=== PATIENT | female | born 1980 | race African-American/Black ===

== ENCOUNTER 2016-08-01 00:45 | Emergency (ER) | payer OTHER ==
[~2016-08-01] VITALS: Ht 162.6 cm; Wt 97.0 kg
[~2016-08-01 00:45] MED LIST: KETO10TA PO
[2016-08-01 00:50] VITALS: TEMP 36.8; Ht 162.6 cm; Wt 97.0 kg
[2016-08-01] MEDS ORDERED: ONDANSETRON 4MG OD TAB PO STA (01:30)
[2016-08-01] MEDS ORDERED: BUPR150T5 PO (01:51)
[2016-08-01] MEDS ORDERED: SOAP SUDS ENEMA PR ONE (03:00)
[2016-08-01 04:01] VITALS: BP 113/80; PULSE 86; O2SAT 100
[2016-08-01] MEDS ORDERED: ONDANSETRON 4MG OD TAB ONE (04:02)
--- NOTE | 2016-08-01 07:02 | DIAGNOSTIC IMAGING REPORT ---
LAURI CLINICAL HISTORY: Constipation. COMPARISON STUDY: Abdominal series June 04, 2016. FINDINGS: The bowel gas pattern is normal. Pelvic calcifications represent phleboliths. There is a moderate to large amount stool within the ascending colon and the transverse colon. There is minimal stool within the descending colon, sigmoid colon and rectum. IMPRESSION: 1. No evidence for a bowel obstruction. 2. Moderate to large amount of stool within the ascending colon and transverse colon with minimal stool within the descending colon, sigmoid colon and rectum. Electronically signed by: Catracho Elkins M.D. 08/01/2016 7:00 AM
--- NOTE | 2016-08-03 12:11 | EMERGENCY ROOM VISIT NOTE ---
History First contact with patient: 01:20 Chief Complaint: ABDOMINAL PAIN Stated Complaint: PAIN IN LOWER LT ABD,NAUSEA Nursing Triage Summary: Patient reports ongoing issues with constipation, states that she took a lot of miralax and mag citrate, states that she was only able to produce a small BM today with that. Patient also reports LLQ pain that has been present for weeks, but has worsened over the past few days. Patient states that the pain also spreads down the left leg. Patient also states that she has had a decreased appetite and states that when she does eat, she feels bloated. Patient has been seen in ED and by PCP fo this. History of Present Illness The patient is a 36 year old female who presents to the Emergency Room with complaints of left-sided abdominal pain that has been worsening over the past day. The patient has a history of chronic constipation. She did attempt MiraLAX and magnesium citrate at home with only minimal improvement of symptoms. The patient has not had fever or chills. Her discomfort does improve with a bowel movement. She has not had fever or chills. 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 Review of Systems More than 10 systems were reviewed and otherwise negative with the exception of history of present illness. Past Medical/Surgical History Medical Problems: (1) ASTHMA, UNSPECIFIED (2) Headache (3) Neck pain (4) Neck pain (5) Neck pain Family History Cancer Kidney disease Kidney stones Social History Smoking Status: Never Smoker Alcohol Use: none Drug Use: none Marital Status: single Housing Status: lives with family Occupation Status: employed Current/Historical Medications Scheduled Bupropion Hcl (Bupropion Hcl Xl), 150 MG PO BID Allergies Coded Allergies: Cyclobenzaprine (Verified Allergy, Unknown, trouble breathing, 08/01/16) Physical Exam Vital Signs Date Time Temp Pulse Resp B/P Pulse Ox O2 Delivery O2 Flow Rate FiO2 08/01/16 04:01 86 20 113/80 100 08/01/16 02:35 80 20 111/74 96 Room Air 08/01/16 00:50 36.8 89 16 126/78 100 Room Air Pain Rating (0-10): 2.0 Physical Exam VITALS: Vitals are noted on the nurse's note and reviewed by myself. Vital signs stable. GENERAL: Well-developed, well-nourished, female, who is in no acute distress and resting comfortably. Patient is cooperative with the examination. HEAD: Normocephalic atraumatic. HEART: Regular rate and rhythm without murmurs gallops or rubs. LUNGS: Clear to auscultation bilaterally without wheezes, rales or rhonchi. No retractions or accessory muscle use. ABDOMEN: Positive normal bowel sounds x 4. Soft with mild left-sided tenderness on palpation. No obvious point tenderness. No rebound or guarding. MUSCULOSKELETAL: No muscle atrophy, erythema, or edema noted. Full range of motion without joint tenderness in all extremities. Medical Decision & Procedures ER Provider Diagnostic Interpretation: KUB CLINICAL HISTORY: Constipation. COMPARISON STUDY: Abdominal series June 04, 2016. FINDINGS: The bowel gas pattern is normal. Pelvic calcifications represent phleboliths. There is a moderate to large amount stool within the ascending colon and the transverse colon. There is minimal stool within the descending colon, sigmoid colon and rectum. IMPRESSION: 1. No evidence for a bowel obstruction. 2. Moderate to large amount of stool within the ascending colon and transverse colon with minimal stool within the descending colon, sigmoid colon and rectum. Medications Administered Medications (Trade) Dose Ordered Sig/Simon Route Start Time Stop Time Status Last Admin Dose Admin Miscellaneous (Soap Suds Enema) 1 ea NOW ONCE WI 08/01/16 03:00 08/01/16 03:01 DC 08/01/16 03:00 1 EA Ondansetron HCl (Zofran Odt) 4 mg STK-MED ONCE .ROUTE 08/01/16 04:02 08/01/16 04:03 DC 08/01/16 04:02 4 MG ED Course Physical exam and history were performed. Nursing notes and EMR were reviewed. Patient appears to have a history consistent with constipation. KUB was performed, and does show a moderate to large amount of stool that does seem to correlate with the patient's symptoms. I discussed options of care with the patient. She has tried outpatient MiraLAX and magnesium citrate. We did elect to perform a soapsuds enema here in the department. The patient had significant results following the soapsuds enema. She had essentially full resolution of her abdominal discomfort after a large bowel movement. Repeat abdominal exam reveals no more left-sided tenderness. Overall the patient does appear stable for discharge home. We discussed conservative MiraLAX and Colace use at home, as well as increasing dietary fiber. The patient should follow with gastroenterology if her symptoms persist. She was otherwise invited back to the ER with any new, worsening, or concerning symptoms. The chart was completed utilizing [employer] Speech Voice Recognition Software. Grammatical errors, random word insertions, pronoun errors, and incomplete sentences are an occasional consequence of this system due to software limitations, ambient noise, and hardware issues. Any formal questions or concerns about the content, text, or information contained within the body of this dictation should be directly addressed to the provider for clarification. . Medical Decision Differential diagnosis: Etiologies such as appendicitis, diverticulitis, PUD, biliary pathology, UTI, pancreatitis, obstruction, mesenteric ischemia, aortic pathology, infections, inflammatory bowel disease, renal colic, as well as others were entertained. Impression Primary Impression: Constipation Departure Information Dispostion Home / Self-Care Condition GOOD Referrals Melvin Grimaldo D.O. Forms Call Back Authorization, HOME CARE DOCUMENTATION FORM, [facility], IMPORTANT VISIT INFORMATION Patient Instructions A Signature Page Additional Instructions You were seen and evaluated today on an emergency basis only. This is not a substitute for, or an effort to provide, complete comprehensive medical care. It is not possible to recognize and treat all injuries or illnesses in a single emergency department visit. For this reason it is recommended that you followup with Gastroenterology, Dr. Grimaldo's office, with any ongoing or persistent symptoms. Drink plenty of fluids and remain well hydrated. Consider [id number] MiraLAX or Colace. Increase dietary fiber. You are welcome to return to the emergency department anytime with new, worsening, or concerning symptoms.
[2016-08-05] MEDS ORDERED: LINA1CAP PO (10:55)
[2016-08-05] MEDS ORDERED: BUPR-83 PO (10:55)
== END 2016-08-01 04:05 | disposition home or self-care (01) ==
LOC: C.EDB 00:46
DX: K59.00 Constipation, unspecified (principal); J45.909 Unspecified asthma, uncomplicated

== ENCOUNTER → 2016-08-02 | Outpatient (CLI) | payer OTHER ==
[~2016-08-02] MED LIST changes: +BUPR-83 PO; +BUPR150T5 PO; +HYDR-5688 PO; +IBUP-1050 PO; +LINA1CAP PO; +PSEU240T PO
== END | disposition home or self-care (01) ==
LOC: C.LAB1850 16:13
PROVIDERS: ATTEND Internal Medicine
DX: K59.00 Constipation, unspecified (principal)

== ENCOUNTER → 2016-08-07 | Day surgery (SDC) | payer OTHER ==
[2016-08-05 10:55] VITALS: BMI 37.0
[~2016-08-07] VITALS: Ht 160 cm; Wt 96.8 kg
[~2016-08-07] MED LIST changes: -BUPR150T5 PO; +DEXAMETHASONE SOD INJ 4 MG/ML VIAL ONE; -KETO10TA PO; +LIDOCAINE HCL 2% 2 ML VIAL (20MG/ML) ONE; +MIDAZOLAM HCL 1 MG/ML 2ML VIAL ONE; +ONDANSETRON INJ 2 MG/ML 2 ML VIAL ONE; +PROPOFOL IV EMULSION 10 MG/ML 20 ML VIAL IV ONE; +SODIUM CHLORIDE 0.9% 500ML 500 ML IV ONE
[2016-08-07 12:24] VITALS: Ht 160 cm; Wt 96.8 kg
[2016-08-07 12:31] VITALS: TEMP 36.8
--- NOTE | 2016-08-07 12:32 | Endo History and Physical ---
History & Physical Date of Service: Aug 07, 2016. Chief Complaint: Change in bowel habits Referring Physician: Dr. Vinh Orozco History of Present Illness 36 yo AAF who presents for colonoscopy secondary to change in bowel habits. Past Surgical History Hx Abdominal Surgery: Yes (UMBILICAL HERNIA, LEEP PROCEDURE) Hx Post-Op Nausea and Vomiting: Yes Hx Thoracic Surgery: Yes (UPPER LEFT WRIST CYST REMOVAL) Hx Orthopedic: No Hx Urinary Tract Surgery: No Family History None Social History Smoking Status: Never Smoker Hx Substance Use: No Hx Alcohol Use: Yes (RARELY) Allergies Coded Allergies: Cyclobenzaprine (Verified Allergy, Unknown, trouble breathing, 08/05/16) Current Medications Reported Home Medications Medications Dose Route/Sig Max Daily Dose Days Date Category Linzess (Linaclotide) 145 Mcg Cap 1 Cap PO QAM 08/05/16 Reported Wellbutrin (Bupropion HCl) 100 Mg Tab 100 Mg PO BID 08/05/16 Reported Vital Signs Weight (Kilograms): 96.82 Height (Feet): 5 Height (Inches): 3 Physical Exam General Appearance: WD/WN, no apparent distress Respiratory/Chest: Auscultation: breath sounds normal Cardiovascular: Heart Auscultation: RRR Abdomen: Bowel Sounds: normal Inspection & Palpation: soft, non-distended, no tenderness, guarding & rebound Assessment and Plan Assessment: 36 yo AAF who presents for colonoscopy secondary to change in bowel habits. Plan: Proceed with colonoscopy.
--- NOTE | 2016-08-07 14:04 | Discharge Instructions ---
Endoscopy Patient Instructions Date / Procedure(s) Performed Aug 07, 2016. Colonoscopy Allergy Information Coded Allergies: Cyclobenzaprine (Verified Allergy, Unknown, trouble breathing, 08/05/16) Discharge Date / Findings Aug 07, 2016. Internal hemorrhoids Medication Instructions OK to resume all medications today as prescribed Reported Home Medications Medications Dose Route/Sig Max Daily Dose Days Date Category Linzess (Linaclotide) 145 Mcg Cap 1 Cap PO QAM 08/05/16 Reported Wellbutrin (Bupropion HCl) 100 Mg Tab 100 Mg PO BID 08/05/16 Reported Provider Instructions Activity Restrictions - No exercising or heavy lifting for 24 hours. - Do not drink alcohol the day of the procedure. - Do not drive a car or operate machinery until the day after the procedure. - Do not make any important decisions or sign important papers in 24 hours after the procedure. Following Day: - Return to full activity which may include returning to work/school. Diet Start your diet with liquids and light foods (jello, soup, juice, toast). Then eat your usual diet if not nauseated. Treatment For Common After Affects For mild abdominal pain, bloating, or excessive gas: - Rest - Eat lightly - Lie on right side Follow-Up Information Follow-up with Dr. Orozco as scheduled Anesthesia Information What You Should Know You have had a procedure that required some medicine to reduce anxiety and discomfort. This treatment is called moderate sedation. After receiving the treatment, you may be sleepy, but you will be able to breathe on your own. The effects of the treatment may last for several hours. Follow these instructions along with Activity/Diet recommendations noted above: * Do NOT do anything where dizziness or clumsiness would be dangerous. * Rest quietly at home today, then you can be up and about tomorrow. * Have a responsible person stay with you the rest of today. * You may have had an I.V. today. If so, you may take the dressing off later today. Recommendations Call your doctor if: * Trouble breathing * Continuous vomiting for more than 24 hours * Temperature above 101 degrees * Severe abdominal pain or bloating * Pain not relieved by pain medicine ordered * There is increased drainage or redness from any incision * A large amount of rectal bleeding greater than 2-3 tablespoons. (If you had a polyp/s removed or have hemorrhoids, a small amount of blood - from the rectum is to be expected.) * You have any unanswered questions or concerns. IN THE EVENT OF A SERIOUS EMERGENCY, GO TO THE NEAREST EMERGENCY ROOM Your discharge instructions were prepared by provider Melvin Grimaldo. Patient Instructions Signature Page Tania Davila Patient (or Guardian) Signature/Date: I have read and understand the instructions given to me by my caregivers. Caregiver/RN/Doctor Signature/Date: The above-named patient and/or guardian has received patient instructions on this date. + Original Patient Signature Page (only) stays with chart. Please make copy for patient.
--- NOTE | 2016-08-07 14:04 | GI REPORT ---
Procedure Date: 08/07/2016 12:55 PM Procedure: Colonoscopy Indications: Change in bowel habits Medicines: Monitored Anesthesia Care Complications: No immediate complications. Estimated Blood Loss: Estimated blood loss: none. Procedure: Pre-Anesthesia Assessment: - Prior to the procedure, a History and Physical was performed, and patient medications and allergies were reviewed. The patient's tolerance of previous anesthesia was also reviewed. The risks and benefits of the procedure and the sedation options and risks were discussed with the patient. All questions were answered, and informed consent was obtained. Prior Anticoagulants: The patient has taken no previous anticoagulant or antiplatelet agents. ASA Grade Assessment: II - A patient with mild systemic disease. After reviewing the risks and benefits, the patient was deemed in satisfactory condition to undergo the procedure. After I obtained informed consent, the scope was passed under direct vision. Throughout the procedure, the patient's blood pressure, pulse, and oxygen saturations were monitored continuously. The scope was introduced through the anus and advanced to the terminal ileum. The colonoscopy was performed without difficulty. The patient tolerated the procedure well. The quality of the bowel preparation was good. The terminal ileum, ileocecal valve, appendiceal orifice, and rectum were photographed. Findings: Non-bleeding internal hemorrhoids were found during retroflexion. The hemorrhoids were small. The exam was otherwise without abnormality. Impression: - Non-bleeding internal hemorrhoids. - The examination was otherwise normal. - No specimens collected. Recommendation: - Resume previous diet. - Continue present medications. - Repeat colonoscopy at age 51 for surveillance. - Return to primary care physician as previously scheduled. Melvin Grimaldo DO 08/07/2016 2:03:41 PM This report has been signed electronically. Note Initiated On: 08/07/2016 12:55 PM
[2016-08-07 14:26] VITALS: BP 131/77; PULSE 78; O2SAT 100
--- NOTE | 2016-08-07 15:12 | Anesthesiology Progress Note ---
Anesthesia Post Op Note Date & Time Aug 07, 2016 at 15:11 Vital Signs Pain Intensity: 0 Vital Signs Past 12 Hours Date Time Temp Pulse Resp B/P Pulse Ox O2 Delivery O2 Flow Rate FiO2 08/07/16 14:26 78 20 131/77 100 Room Air 08/07/16 14:10 90 18 94/52 100 Room Air 08/07/16 13:54 75 16 95/53 100 Room Air 08/07/16 12:31 36.8 78 16 119/60 98 Room Air Notes Mental Status: alert / awake / arousable, participated in evaluation Pt Amnestic to Procedure: Yes Nausea / Vomiting: adequately controlled Pain: adequately controlled Airway Patency, RR, SpO2: stable & adequate BP & HR: stable & adequate Hydration State: stable & adequate Anesthetic Complications: no major complications apparent
== END | disposition home or self-care (01) ==
LOC: C.GI 12:07
PROVIDERS: ATTEND Internal Medicine
DX: R19.4 Change in bowel habit (principal); K64.8 Other hemorrhoids; Z98.890 Other specified postprocedural states; Z88.8 Allergy status to other drugs, medicaments and biological substances

== ENCOUNTER 2016-09-07 11:38 | Emergency (ER) | payer OTHER ==
[~2016-09-07] VITALS: Ht 160 cm; Wt 96.8 kg
[~2016-09-07 11:38] MED LIST changes: -DEXAMETHASONE SOD INJ 4 MG/ML VIAL ONE; -HYDR-5688 PO; -IBUP-1050 PO; -LIDOCAINE HCL 2% 2 ML VIAL (20MG/ML) ONE; -MIDAZOLAM HCL 1 MG/ML 2ML VIAL ONE; -ONDANSETRON INJ 2 MG/ML 2 ML VIAL ONE; -PROPOFOL IV EMULSION 10 MG/ML 20 ML VIAL IV ONE; -PSEU240T PO; -SODIUM CHLORIDE 0.9% 500ML 500 ML IV ONE
[2016-09-07 11:42] VITALS: TEMP 36.6; Ht 160 cm; Wt 96.8 kg
[2016-09-07] MEDS ORDERED: KETOROLAC TROMETHAMINE 60 MG/2 ML VIAL IM STA (12:15)
[2016-09-07] MEDS ORDERED: HYDROCODONE/ACETAMOPHEN 5/325MG TAB PO STA (12:15)
--- NOTE | 2016-09-07 13:01 | DIAGNOSTIC IMAGING REPORT ---
RIGHT KNEE 4 VIEWS CLINICAL HISTORY: Chronic right knee pain. FINDINGS: AP, lateral, tunnel, and sunrise views of the right knee are compared to study dated 08/01/2012. The skeletal structures are well mineralized. No fracture is seen. There is degenerative joint space narrowing at the patellofemoral articulation. The medial and lateral compartments appear preserved. There are patellar enthesophytes as well as large lateral marginal osteophytes. No evidence of osteochondral lesion is identified on the tunnel view. There is minimal degenerative beaking of the tibial spine. No joint effusion is seen. The overlying soft tissues are within normal limits. IMPRESSION: 1. No acute bony abnormality seen in the right knee. 2. Mild arthritic change as above, greatest at the patellofemoral articulation. Electronically signed by: Aguilar Vasquez M.D. 09/07/2016 1:00 PM Dictated Date/Time: 09/07/2016 12:59 PM
--- NOTE | 2016-09-07 13:21 | EMERGENCY ROOM VISIT NOTE ---
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 The patient denies any known injury to the knee. The patient states that she was messing around in her house yesterday and got pain just above her knee. The patient states now that she has pain in this area when she tries to bend her knee. The patient denies any numbness and tingling. The patient denies any giving out of the knee. REVIEW OF SYSTEMS: 6 system review was performed and was negative unless stated otherwise in history of present illness. PMH: The patient is healthy; asthma, kidney stones, umbilical hernia repair ganglion cyst removal from left wrist, tonsillectomy, LEEP procedure SOCIAL HISTORY: Patient lives with HER-2 children. The patient denies any tobacco or alcohol use. PHYSICAL EXAM: Vital Signs: Were reviewed Reviewed Nurse's notes. GENERAL: 36- year-old female appears in no acute distress. MENTAL STATUS: Alert, oriented, and cooperative. RIGHT KNEE: No gross bony deformity noted. No erythema or edema noted. The patient has point tenderness in the suprapatellar region. There is no joint effusion. The range of motion is limited secondary to pain. There is no ligamentous instability. The skin is normal and intact. The patient walks with an antalgic gait. EMERGENCY DEPARTMENT COURSE: The patient was evaluated. The patient was given Toradol 60 mg IM and Kossuth 5/325 mg one tablet by mouth for pain. X-ray of the right knee was ordered to include sunrise view. This was interpreted by the radiologist and myself. DIAGNOSTICSRIGHT KNEE 4 VIEWS CLINICAL HISTORY: Chronic right knee pain. FINDINGS: AP, lateral, tunnel, and sunrise views of the right knee are compared to study dated 08/01/2012. The skeletal structures are well mineralized. No fracture is seen. There is degenerative joint space narrowing at the patellofemoral articulation. The medial and lateral compartments appear preserved. There are patellar enthesophytes as well as large lateral marginal osteophytes. No evidence of osteochondral lesion is identified on the tunnel view. There is minimal degenerative beaking of the tibial spine. No joint effusion is seen. The overlying soft tissues are within normal limits. IMPRESSION: 1. No acute bony abnormality seen in the right knee. 2. Mild arthritic change as above, greatest at the patellofemoral articulation. Electronically signed by: Aguilar Vasquez M.D. 09/07/2016 1:00 PM Dictated Date/Time: 09/07/2016 12:59 PM The patient was informed of the findings. The patient was placed in a knee immobilizer and discharged home in stable condition. DIAGNOSIS: Bone spur right knee DISCHARGE INSTRUCTIONS: Knee immobilizer for 3 - 5 days until the pain subsides , ibuprofen, 600 mg every 6 hours if needed for pain. Take Kossuth as needed for more severe pain. Do not drive while taking the work Kossuth. Follow-up with [facility] as soon as possible for definitive care. Problem List Medical Problems: (1) ASTHMA, UNSPECIFIED Status: Chronic (2) Headache Status: Resolved (3) Neck pain Status: Resolved (4) Neck pain Status: Resolved (5) Neck pain Status: Resolved Current/Historical Medications Scheduled Bupropion (Wellbutrin), 100 MG PO BID Linaclotide (Linzess), 1 CAP PO QAM Allergies Coded Allergies: Cyclobenzaprine (Verified Allergy, Unknown, trouble breathing, 09/07/16) Vital Signs Date Time Temp Pulse Resp B/P Pulse Ox O2 Delivery O2 Flow Rate FiO2 09/07/16 11:42 36.6 92 17 122/88 100 Room Air Medications Administered Medications (Trade) Dose Ordered Sig/Simon Route Start Time Stop Time Status Last Admin Dose Admin Acetaminophen/ Hydrocodone Bitart ([place] 5/325 Tab) 1 tab NOW STAT PO 09/07/16 12:15 09/07/16 12:17 DC 09/07/16 12:28 1 TAB Ketorolac Tromethamine (Toradol Inj) 60 mg NOW STAT IM 09/07/16 12:15 09/07/16 12:17 DC 09/07/16 12:28 60 MG Departure Information Referrals Vinh Orozco M.D.([facility]) (PCP) Patient Instructions [facility]
[2016-09-07] MEDS ORDERED: HYDR-5688 PO (13:24)
[2016-09-07 13:37] VITALS: BP 124/81; PULSE 88; O2SAT 100
== END 2016-09-07 13:38 | disposition home or self-care (01) ==
LOC: C.EDB 11:40 → C.EDD 13:38
DX: M76.891 Other specified enthesopathies of right lower limb, excluding foot (principal); G89.29 Other chronic pain; M25.561 Pain in right knee; J45.909 Unspecified asthma, uncomplicated; Z79.899 Other long term (current) drug therapy; Z88.8 Allergy status to other drugs, medicaments and biological substances

== ENCOUNTER 2016-11-17 15:02 | Emergency (ER) | payer OTHER ==
[~2016-11-17] VITALS: Ht 162.6 cm; Wt 101.0 kg
[~2016-11-17 15:02] MED LIST changes: +HYDR-5688 PO
[2016-11-17 15:20] VITALS: TEMP 36.7; Ht 162.6 cm; Wt 101.0 kg
[2016-11-17] MEDS ORDERED: IBUP-1050 PO (15:34)
[2016-11-17] MEDS ORDERED: PSEU240T PO (15:34)
[2016-11-17] MEDS ORDERED: PROCHLORPERAZINE 5 MG/ML 2 ML VIAL IV STA (16:06)
[2016-11-17] MEDS ORDERED: KETOROLAC TROMETHAMINE 30 MG/ML VIAL IV STA (16:06)
[2016-11-17] MEDS ORDERED: SODIUM CHLORIDE 0.9% 1000ML 1,000 ML IV STA (16:06)
[2016-11-17] MEDS ORDERED: DiphenhydrAMINE HCL 50 MG/ML VIAL IV STA (16:06)
--- NOTE | 2016-11-17 16:12 | EMERGENCY ROOM VISIT NOTE ---
History Report prepared by Lebron: Андрей Fontanez Under the Supervision of: Dr. Rene Medrano M.D. First contact with patient: 16:00 Chief Complaint: HEAD PAIN Stated Complaint: HEAD PAIN R SIDE FRONTAL History of Present Illness The patient is a 36 year old female who presents to the Emergency Room with complaints of a persistent right sided headache beginning about 3 days ago. She reports to having a history of migraines, and was here about 1 year ago for a migraine. She notes she has not been sleeping well lately but has been eating well. She took Excedrin and Sudafed yesterday with no relief of her symptoms. She also took a Vicodin which she had leftover from a recent leg surgery. She admits to having some nausea and vomiting, sore throat, and photophobia, and denies having any abdominal pain, arm or leg pain, loss of bowel or bladder control, or recent trauma. She reports that having caffeine helped to temporarily resolve her symptoms. The patient denies any exposure to harmful chemicals at work, and denies a history of diabetes. Source of History: patient Onset: about 3 days ago Position: head (right sided) Quality: ache, other (headache) Timing: other (persistent) Modifying Factors (Worsening): other (light) Modifying Factors (Relieving): other (caffeine) Associated Symptoms: + nausea, + sorethroat, + vomiting, No abdominal pain Note: Patient also reports having photophobia. Patient also denies leg or arm pain, loss of bowel or bladder control, or recent trauma. Review of Systems See HPI for pertinent positives & negatives. A total of 10 systems reviewed and were otherwise negative. Past Medical & Surgical Medical Problems: (1) ASTHMA, UNSPECIFIED (2) Headache (3) Neck pain (4) Neck pain (5) Neck pain Family History Cancer Kidney disease Kidney stones Social History Smoking Status: Never Smoker Alcohol Use: none Drug Use: none Marital Status: single Housing Status: lives with family Occupation Status: employed Current/Historical Medications Scheduled PRN Ibuprofen (Advil), 200-600 MG PO Q4H PRN for Pain Pseudoephedrine Hcl (Sudafed 24 Hour), 1 TAB PO DAILY PRN for CONGESTION Allergies Coded Allergies: Cyclobenzaprine (Verified Allergy, Unknown, trouble breathing, 11/17/16) Physical Exam Vital Signs Date Time Temp Pulse Resp B/P Pulse Ox O2 Delivery O2 Flow Rate FiO2 11/17/16 18:00 77 20 115/70 99 11/17/16 17:30 71 16 126/74 100 Room Air 11/17/16 15:20 36.7 84 20 124/74 98 Room Air Physical Exam GENERAL: Patient is well appearing and in mild distress. HEAD: No acute trauma, normocephalic atraumatic ENT: Mucous membranes moist, no nasal congestion. EAR: Slight amount of fluids behind right TM. EYES: Equal/Reactive Bilaterally, No scleral icterus, Normal ROM NECK: No nuchal rigidity, no meningismus, trachea is midline, full ROM LUNGS: No dyspnea. Clear to auscultation and equal bilaterally. No wheeze, no rhonchi. HEART: Regular rate and rhythm. No murmurs, rubs, gallops appreciated. ABDOMEN: Soft, nontender, bowel sounds positive, no masses appreciated, no peritonitis. BACK: No midline tenderness, no CVA tenderness EXTREMITIES: Normal motion all extremities, no cyanosis, no edema. NEUROLOGIC: Awake, Alert, Oriented, no acute motor or sensory deficits, no focal weakness, cranial nerves grossly intact. SKIN: No rash, no jaundice, no diaphoresis. Medical Decision & Procedures Medications Administered Medications (Trade) Dose Ordered Sig/Simon Route Start Time Stop Time Status Last Admin Dose Admin Sodium Chloride (Nss 1000ml) 1,000 ml @ 999 mls/hr Q1H1M STAT IV 11/17/16 16:06 11/17/16 17:06 DC 11/17/16 16:32 999 MLS/HR Diphenhydramine HCl (Benadryl Inj) 50 mg NOW STAT IV 11/17/16 16:06 11/17/16 16:07 DC 11/17/16 16:33 50 MG Ketorolac Tromethamine (Toradol Inj) 30 mg NOW STAT IV 11/17/16 16:06 11/17/16 16:07 DC 11/17/16 16:34 30 MG Prochlorperazine Edisylate (Compazine Inj) 5 mg NOW STAT IV 11/17/16 16:06 11/17/16 16:07 DC 11/17/16 16:33 5 MG Dexamethasone Sodium Phosphate (Decadron Inj) 10 mg NOW ONCE IV 11/17/16 17:45 11/17/16 17:46 DC 11/17/16 17:50 10 MG ED Course 1601: The patient was evaluated in room B3B. A complete history and physical exam was performed. 1606: Ordered Compazine Inj 5 mg IV, Toradol Inj 30 mg IV, Benadryl Inj 50 mg IV , and NSS 1,000 ml @ 999 mls/hr IV. 1734: I reassessed the patient. She feels much better and is okay with going home. 1745: Ordered Decadron Inj 10 mg IV. 1750: Reevaluated the patient. Discussed results and discharge instructions: She verbalized understanding and agreement. The patient is ready for discharge. Medical Decision Differential: Headache, Migraine, Cluster Headache, Seizure, Meningitis, Sinusitis, CO exposure, ICH/SAH, Infectious, Tumor, Sinus Thrombosis, Arterial Dissection, amongst other pathologies entertained. 36 yr old female arrives with complaint of right sided headache. Similar to previous headaches that she has been seen for. Previously with CT head which was unremarkable. Resolved with above and looks well. No neuro deficits. Discharge to home with instructions regarding return symptoms, etc. Impression Primary Impression: Right-sided headache Scribe Attestation The scribe's documentation has been prepared under my direction and personally reviewed by me in its entirety. I confirm that the note above accurately reflects all work, treatment, procedures, and medical decision making performed by me. Departure Information Dispostion Home / Self-Care Referrals Vinh Orozco M.D.([facility]) (PCP) Patient Instructions ED Headache Migraine, My [facility] Additional Instructions You have received a sedative pain medication. These medications may cause drowsiness and should not be used with other sedative medications. Do not drive , drink alcohol, perform dangerous activities, nor make important decisions after taking these medications.
[2016-11-17] MEDS ORDERED: DEXAMETHASONE SOD INJ 10 MG/ML VIAL IV ONE (17:45)
[2016-11-17 18:00] VITALS: BP 115/70; PULSE 77; O2SAT 99
== END 2016-11-17 17:55 | disposition home or self-care (01) ==
LOC: C.EDB 15:03
DX: R51 Headache (principal); R11.2 Nausea with vomiting, unspecified; J45.909 Unspecified asthma, uncomplicated; Z84.1 Family history of disorders of kidney and ureter

== ENCOUNTER → 2017-05-13 | Outpatient (CLI) | payer OTHER ==
[~2017-05-13] MED LIST changes: -BUPR-83 PO; -HYDR-5688 PO; +IBUP-1050 PO; -LINA1CAP PO; +PSEU240T PO
[2017-05-13 17:39] LABS: URINE APPEARANCE CLEAR (CLEAR); URINE BILIRUBIN NEG (NEG); URINE COLOR YELLOW; URINE NITRITE NEG (NEG); URINE PH 6.5 (4.5-7.5); URINE SPECIFIC GRAVITY 1.029 (1.000-1.030); UROBILINOGEN NEG (NEG)
[2017-05-13 17:44] LABS: MANUAL MICROSCOPIC REQUIRED? NO; REVIEW REQ? NO
== END | disposition home or self-care (01) ==
LOC: C.LAB1850 16:54
PROVIDERS: ATTEND Physician Assistant
DX: R39.9 Unspecified symptoms and signs involving the genitourinary system (principal)

== ENCOUNTER 2017-05-14 10:08 | Emergency (ER) | payer OTHER ==
[~2017-05-14] VITALS: Ht 160 cm; Wt 107.3 kg
[2017-05-14 10:19] VITALS: TEMP 36.8; Ht 160 cm; Wt 107.3 kg
[2017-05-14] MEDS ORDERED: KETOROLAC TROMETHAMINE 30 MG/ML VIAL IV STA (10:40)
[2017-05-14] MEDS ORDERED: SODIUM CHLORIDE 0.9% 1000ML 1,000 ML IV ONE (10:45)
[2017-05-14 11:02] LABS: BASO % 0.5 %; BASO ABS # 0.02 K/uL (0-0.2); COMPLETE YES; EOS % 1.1 %; HEMATOCRIT 39.7 % (37-47); IG% 0.5 %; LYMPH % 36.5 %; LYMPH ABS # 1.59 K/uL (1.2-3.4); MEAN CELL VOLUME 88.2 fL (80-100); MEAN CORPUSCULAR HEMOGLOBIN 29.6 pg (25-34); MEAN CORPUSCULAR HGB CONC 33.5 g/dl (32-36); MEAN PLATELET VOLUME 9.5 fL (7.4-10.4); MONO % 6.9 %; NEUT % 54.5 %; PLATELET COUNT 389 K/uL (130-400); WHITE BLOOD COUNT 4.36 K/uL (4.8-10.8)
[2017-05-14 11:17] LABS: BUN/CREATININE RATIO 11.7 (10-20); CALCIUM 8.9 mg/dl (8.5-10.1); CREATININE 0.93 mg/dl (0.60-1.20); POTASSIUM 3.8 mmol/L (3.5-5.1)
[2017-05-14 11:20] LABS: ALB/GLOB RATIO 0.8 (0.9-2)
[2017-05-14 11:24] LABS: URINE APPEARANCE CLEAR (CLEAR); URINE BILIRUBIN NEG (NEG); URINE COLOR YELLOW; URINE EPITHELIAL CELL AUTO >30 /lpf (0-5); URINE NITRITE NEG (NEG); URINE SPECIFIC GRAVITY 1.026 (1.000-1.030); UROBILINOGEN NEG (NEG); ZZUR CULT IF INDIC CLEAN CATCH NO
[2017-05-14 11:27] LABS: MANUAL MICROSCOPIC REQUIRED? NO; REVIEW REQ? NO
[2017-05-14] MEDS ORDERED: CALCIUM CARBONATE 500 MG CHEWABLE PO ONE (11:45)
--- NOTE | 2017-05-14 11:46 | DIAGNOSTIC IMAGING REPORT ---
ABD/PELVIS WITHOUT FOR STONE HISTORY: 36 years-old Female Right flank pain. Acute right-sided flank pain with history of kidney stones COMPARISON: [facility] 08/01/2016, CT 02/25/2013 TECHNIQUE: Multiple axial CT images of the abdomen and pelvis were obtained without contrast. A dose lowering technique was used consistent with the principals of DAVIN. FINDINGS: The imaged inferior cardiac chambers appear to be within the upper limits of normal. Minimal subsegmental dependent bibasilar atelectasis. No pneumoperitoneum identified. Evaluation of the solid abdominal organs is limited without the use of IV contrast. Within the limitations of the study, the liver, spleen, pancreas and adrenal glands are unremarkable. Gallbladder is mildly contracted. Punctate nonobstructing calculus of the interpolar left kidney is seen on image 124 of series 3. No definite right-sided renal calculi, ureteral calculi or obstructive uropathy. Calcifications of the pelvis suggest phleboliths, notably a 5 mm calcification image 384 of series 3 within the region of the left renal retrovesicular junction is noted, also suggesting phlebolith. Urinary bladder is mostly collapsed. Uterus and adnexa are unremarkable. Abdominal aorta is normal in both course and caliber. No bulky adenopathy identified. There is no bowel obstruction or focal bowel wall thickening identified. There is an air-filled tubular structure within the right lower pelvis on image 327 series 3 suggesting normal appendix. No associated inflammatory stranding to suggest acute appendicitis. Small fat filled supraumbilical ventral dominant wall hernia is noted, diastases 1.5 cm. 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 Bones appear intact. IMPRESSION: 1. Punctate nonobstructing calculus of the interpolar left kidney. No ureteral calculi or hydronephrosis identified. 2. No evidence of acute appendicitis. 3. Osteitis condensans ilii. The above report was generated using voice recognition software. It may contain grammatical, syntax or spelling errors. Electronically signed by: Olaf Simms M.D. 05/14/2017 11:45 AM Dictated Date/Time: 05/14/2017 11:37 AM
--- NOTE | 2017-05-14 15:50 | DIAGNOSTIC IMAGING REPORT ---
PELVIC COMPLETE NON OB HISTORY: 36 years-old Female Low abd pain. Normal CT scan. Acute lower abdominal pain COMPARISON: CT 05/14/2017 TECHNIQUE: Multiple real-time sonographic images of the deep pelvic structures were obtained transabdominally and transvaginally assessing grayscale appearance, color and spectral flow. FINDINGS: TRANSABDOMINAL: Anteflexed uterus measures 9.9 x 5.3 x 6.4 cm. Endometrium is upper limits of normal, 1.3 cm in thickness. No focal myometrial mass lesions identified. Right ovary measures 2.7 x 2.4 x 4.3 cm and demonstrates arterial inflow. Left ovary is not well seen. TRANSVAGINAL: Anteflexed uterus measures 10.1 x 5.6 x 6.6 cm. Endometrium measures 1.7 cm, mildly thickened. No myometrial mass lesions identified. Right ovary measures 4.3 x 2.8 x 3.9 cm. Complex cystic lesion of the right ovary is seen, 2.7 x 2.0 x 2.7 cm suggesting involuting follicle. Arterial inflow the right ovary is noted. Left ovary is not visualized. No adnexal mass lesions identified. No significant free pelvic fluid. IMPRESSION: 1. Mildly thickened endometrium, 1.7 cm without focal uterine abnormality identified. 2. Involuting follicle of the right ovary, 2.7 cm. No evidence of right ovarian torsion. 3. Nonvisualization of the left ovary. The above report was generated using voice recognition software. It may contain grammatical, syntax or spelling errors. Electronically signed by: Olaf Simms M.D. 05/14/2017 3:49 PM Dictated Date/Time: 05/14/2017 3:45 PM
--- NOTE | 2017-05-14 16:17 | EMERGENCY ROOM VISIT NOTE ---
History First contact with patient: 10:23 Chief Complaint: ABDOMINAL PAIN Stated Complaint: AB PAIN RIGHT SIDE PAIN Nursing Triage Summary: pt reports lower abd pain for 2 weeks has been taking azo thought was uti last started vomiting and having right flank pain. has hx of kidney stone History of Present Illness The patient is a 36 year old female who presents to the Emergency Room with complaints of right lower quadrant abdominal pain that is radiating into her right-sided flank for the past 2 weeks. The patient's symptoms worsened over the past 24 hours, prompting her presentation. She did have concerns for UTI and did take [id number] AZO. This did not significantly improve her symptoms. She denies chance of and she does not have fever or chills. She does report a history of kidney stones. No upper abdominal discomfort is reported. No vaginal drainage or discharge. She is not concerned for STD exposure. She rates her discomfort a 5/10. Review of Systems More than 10 systems were reviewed and otherwise negative with the exception of history of present illness. Past Medical/Surgical History Medical Problems: (1) ASTHMA, UNSPECIFIED (2) Headache (3) Neck pain (4) Neck pain (5) Neck pain Family History Cancer Kidney disease Kidney stones Social History Smoking Status: Never Smoker Alcohol Use: none Drug Use: none Marital Status: single Housing Status: lives with family Occupation Status: employed Current/Historical Medications No Active Prescriptions or Reported Meds Allergies Coded Allergies: Cyclobenzaprine (Verified Allergy, Unknown, trouble breathing, 05/14/17) Physical Exam Vital Signs Date Time Temp Pulse Resp B/P (MAP) Pulse Ox O2 Delivery O2 Flow Rate FiO2 05/14/17 14:27 60 18 112/66 96 Room Air 05/14/17 13:15 73 18 114/72 100 Room Air 05/14/17 10:19 36.8 76 18 128/76 99 Room Air Physical Exam VITALS: Vitals are noted on the nurse's note and reviewed by myself. Vital signs stable. GENERAL: Well-developed, well-nourished, black female, who is in no acute distress and resting comfortably. Patient is cooperative with the examination. HEART: Regular rate and rhythm without murmurs gallops or rubs. LUNGS: Clear to auscultation bilaterally without wheezes, rales or rhonchi. No retractions or accessory muscle use. ABDOMEN: Positive normal bowel sounds x 4. Soft with positive lower abdominal tenderness on palpation that appears greater in the right lower quadrant and left lower quadrant. No CVA tenderness. No rebound or guarding. 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 Normal-appearing external female genitalia without significant rash or lesion. Speculum exam reveals anteflexed cervix without lesion or erythema. No significant drainage or odor noted. Swabs were obtained. MUSCULOSKELETAL: No muscle atrophy, erythema, or edema noted. Full range of motion without joint tenderness in all extremities. Medical Decision & Procedures ER Provider Diagnostic Interpretation: PELVIC COMPLETE NON OB HISTORY: 36 years-old Female Low abd pain. Normal CT scan. Acute lower abdominal pain COMPARISON: CT 05/14/2017 TECHNIQUE: Multiple real-time sonographic images of the deep pelvic structures were obtained transabdominally and transvaginally assessing grayscale appearance, color and spectral flow. FINDINGS: TRANSABDOMINAL: Anteflexed uterus measures 9.9 x 5.3 x 6.4 cm. Endometrium is upper limits of normal, 1.3 cm in thickness. No focal myometrial mass lesions identified. Right ovary measures 2.7 x 2.4 x 4.3 cm and demonstrates arterial inflow. Left ovary is not well seen. TRANSVAGINAL: Anteflexed uterus measures 10.1 x 5.6 x 6.6 cm. Endometrium measures 1.7 cm, mildly thickened. No myometrial mass lesions identified. Right ovary measures 4.3 x 2.8 x 3.9 cm. Complex cystic lesion of the right ovary is seen, 2.7 x 2.0 x 2.7 cm suggesting involuting follicle. Arterial inflow the right ovary is noted. Left ovary is not visualized. No adnexal mass lesions identified. No significant free pelvic fluid. IMPRESSION: 1. Mildly thickened endometrium, 1.7 cm without focal uterine abnormality identified. 2. Involuting follicle of the right ovary, 2.7 cm. No evidence of right ovarian torsion. 3. Nonvisualization of the left ovary. ABD/PELVIS WITHOUT FOR STONE HISTORY: 36 years-old Female Right flank pain. Acute right-sided flank pain with history of kidney stones COMPARISON: [facility] 08/01/2016, CT 02/25/2013 TECHNIQUE: Multiple axial CT images of the abdomen and pelvis were obtained without contrast. A dose lowering technique was used consistent with the principals of DAVIN. FINDINGS: The imaged inferior cardiac chambers appear to be within the upper limits of normal. Minimal subsegmental dependent bibasilar atelectasis. No pneumoperitoneum identified. Evaluation of the solid abdominal organs is limited without the use of IV contrast. Within the limitations of the study, the liver, spleen, pancreas and adrenal glands are unremarkable. Gallbladder is mildly contracted. Punctate nonobstructing calculus of the interpolar left kidney is seen on image 124 of series 3. No definite right-sided renal calculi, ureteral calculi or obstructive uropathy. Calcifications of the pelvis suggest phleboliths, notably a 5 mm calcification image 384 of series 3 within the region of the left renal retrovesicular junction is noted, also suggesting phlebolith. Urinary bladder is mostly collapsed. Uterus and adnexa are unremarkable. Abdominal aorta is normal in both course and caliber. No bulky adenopathy identified. There is no bowel obstruction or focal bowel wall thickening identified. There is an air-filled tubular structure within the right lower pelvis on image 327 series 3 suggesting normal appendix. No associated inflammatory stranding to suggest acute appendicitis. Small fat filled supraumbilical ventral dominant wall hernia is noted, diastases 1.5 cm. 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 Bones appear intact. IMPRESSION: 1. Punctate nonobstructing calculus of the interpolar left kidney. No ureteral calculi or hydronephrosis identified. 2. No evidence of acute appendicitis. 3. Osteitis condensans ilii. Laboratory Results 05/14/17 10:35 Red Blood Count 4.50, Mean Corpuscular Volume 88.2, Mean Corpuscular Hemoglobin 29.6, Mean Corpuscular Hemoglobin Concent 33.5, Mean Platelet Volume 9.5, Neutrophils (%) (Auto) 54.5, Lymphocytes (%) (Auto) 36.5, Monocytes (%) (Auto) 6.9, Eosinophils (%) (Auto) 1.1, Basophils (%) (Auto) 0.5, Neutrophils # (Auto) 2.38, Lymphocytes # (Auto) 1.59, Monocytes # (Auto) 0.30, Eosinophils # (Auto) 0.05, Basophils # (Auto) 0.02 05/14/17 10:35 Test 05/14/17 10:35 05/14/17 11:10 05/14/17 15:29 White Blood Count 4.36 K/uL (4.8-10.8) Red Blood Count 4.50 M/uL (4.2-5.4) Hemoglobin 13.3 g/dL (12.0-16.0) Hematocrit 39.7 % (37-47) Mean Corpuscular Volume 88.2 fL (80-100) Mean Corpuscular Hemoglobin 29.6 pg (25-34) Mean Corpuscular Hemoglobin Concent 33.5 g/dl (32-36) Platelet Count 389 K/uL (130-400) Mean Platelet Volume 9.5 fL (7.4-10.4) Neutrophils (%) (Auto) 54.5 % Lymphocytes (%) (Auto) 36.5 % Monocytes (%) (Auto) 6.9 % Eosinophils (%) (Auto) 1.1 % Basophils (%) (Auto) 0.5 % Neutrophils # (Auto) 2.38 K/uL (1.4-6.5) Lymphocytes # (Auto) 1.59 K/uL (1.2-3.4) Monocytes # (Auto) 0.30 K/uL (0.11-0.59) Eosinophils # (Auto) 0.05 K/uL (0-0.5) Basophils # (Auto) 0.02 K/uL (0-0.2) RDW Standard Deviation 44.6 fL (36.4-46.3) RDW Coefficient of Variation 13.7 % (11.5-14.5) Immature Granulocyte % (Auto) 0.5 % Immature Granulocyte # (Auto) 0.02 K/uL (0.00-0.02) Anion Gap 6.0 mmol/L (3-11) Est Creatinine Clear Calc Drug Dose 99.1 ml/min Estimated GFR () 92.3 Estimated GFR (Non- 79.6 BUN/Creatinine Ratio 11.7 (10-20) Calcium Level 8.9 mg/dl (8.5-10.1) Total Bilirubin 0.3 mg/dl (0.2-1) Aspartate Amino Transf (AST/SGOT) 15 U/L (15-37) Alanine Aminotransferase (ALT/SGPT) 19 U/L (12-78) Alkaline Phosphatase 65 U/L (45-117) Total Protein 8.5 gm/dl (6.4-8.2) Albumin 3.9 gm/dl (3.4-5.0) Globulin 4.6 gm/dl (2.5-4.0) Albumin/Globulin Ratio 0.8 (0.9-2) Urine Color YELLOW Urine Appearance CLEAR (CLEAR) Urine pH 8.0 (4.5-7.5) Urine Specific [place] 1.026 (1.000-1.030) Urine Protein NEG (NEG) Urine Glucose (UA) NEG (NEG) Urine Ketones NEG (NEG) Urine Occult Blood NEG (NEG) Urine Nitrite NEG (NEG) Urine Bilirubin NEG (NEG) Urine Urobilinogen NEG (NEG) Urine Leukocyte Esterase TRACE (NEG) Urine WBC (Auto) 1-5 /hpf (0-5) Urine RBC (Auto) 0-4 /hpf (0-4) Urine Hyaline Casts (Auto) 1-5 /lpf (0-5) Urine Epithelial Cells (Auto) >30 /lpf (0-5) Urine Bacteria (Auto) NEG (NEG) Date/Time Source Procedure Growth Status 05/14/17 15:29 Cervix Swab Trichomonas Preparation - Final Complete Medications Administered Medications (Trade) Dose Ordered Sig/Simon Route Start Time Stop Time Status Last Admin Dose Admin Sodium Chloride 1,000 ml @ 999 mls/hr Q1H1M ONCE IV 05/14/17 10:45 05/14/17 11:45 DC 05/14/17 11:00 999 MLS/HR Ketorolac Tromethamine (Toradol Inj) 30 mg NOW STAT IV 05/14/17 10:40 05/14/17 10:44 DC 05/14/17 10:59 30 MG Calcium Carbonate (Tums Chew Tab) 500 mg NOW ONCE PO 05/14/17 11:45 05/14/17 11:46 DC 05/14/17 12:07 500 MG ED Course Physical exam and history were performed. Nursing notes, EMR, and Medication List were personally reviewed. Patient appears to have lower abdominal pain for the past 2 weeks. On examination she does have some lower tenderness that may be slightly worse in the right hand side. IV access was established and labs were obtained. Patient was hydrated medications. CT scan was performed. The patient's blood work is as above and was reviewed. She does not have a significant elevated white blood cell count, gross anemia, bandemia, or significant electrolytic imbalance. Lipase and transaminases are not diagnostic. is negative. Urine was without obvious signs of infection with culture pending. CT scan is as above and did not show an acute etiology for the patient's symptoms. I had a lengthy discussion with patient regarding further options of care, and utilizing a joint decision making we did elect to perform a formal pelvic exam and perform ultrasound. Pelvic exam was performed and was essentially unremarkable with cultures pending. The ultrasound does show an involuting follicle, which may be the etiology of the patient's discomfort. Evidently she did have increased discomfort in this area during the internal ultrasound. The patient does have an appointment next week with her [facility], and I did recommend that she keep that appointment. Overall I do not suspect acute surgical abdomen , and the patient may use [id number] analgesics for her symptoms. She was otherwise invited back to the ER with any new, worsening, or concerning symptoms. The chart was completed utilizing [employer] Speech Voice Recognition Software. Grammatical errors, random word insertions, pronoun errors, and incomplete sentences are an occasional consequence of this system due to software limitations, ambient noise, and hardware issues. Any formal questions or concerns about the content, text, or information contained within the body of this dictation should be directly addressed to the provider for clarification. . Medical Decision Differential diagnosis: Etiologies such as appendicitis, diverticulitis, PUD, biliary pathology, UTI, pancreatitis, obstruction, mesenteric ischemia, aortic pathology, infections, inflammatory bowel disease, renal colic, as well as others were entertained. Impression Primary Impression: Abdominal pain Additional Impression: Ovarian cyst Departure Information Dispostion Home / Self-Care Condition GOOD Prescriptions No Active Prescriptions or Reported Meds Forms Call Back Authorization, HOME CARE DOCUMENTATION FORM, IMPORTANT VISIT INFORMATION Patient Instructions My [facility] Additional Instructions You were seen and evaluated today on an emergency basis only. This is not a substitute for, or an effort to provide, complete comprehensive medical care. It is not possible to recognize and treat all injuries or illnesses in a single emergency department visit. For this reason it is recommended that you followup with your [facility] as scheduled for ongoing care and evaluation. For baseline pain relief you may alternate ibuprofen and acetaminophen every 4 hours for pain control. Take 600 mg ibuprofen (Advil) and then 4 hours later take 1000 mg acetaminophen (Tylenol). Do not take more than 3000 mg acetaminophen in a single day. We will contact you if cultures results are positive. You are welcome to return to the emergency department anytime with new, worsening, or concerning symptoms. Problem Qualifiers
[2017-05-14 16:30] VITALS: BP 133/82; PULSE 73; O2SAT 100
[2017-05-17 03:42] LABS: CHLAMYDIA TRACH RNA*** NOT DETECTED (NOT DETECTED); GC (NEIS GONORRHOEAE)RNA** NOT DETECTED (NOT DETECTED)
== END 2017-05-14 16:30 | disposition home or self-care (01) ==
LOC: C.EDB 10:10
DX: N83.201 Unspecified ovarian cyst, right side (principal); R10.31 Right lower quadrant pain; J45.909 Unspecified asthma, uncomplicated; Z88.8 Allergy status to other drugs, medicaments and biological substances; Z80.9 Family history of malignant neoplasm, unspecified; Z84.1 Family history of disorders of kidney and ureter

== ENCOUNTER → 2017-05-20 | Outpatient (CLI) | payer OTHER ==
[2017-05-22 15:03] LABS: CHLAMYDIA TRACH RNA*** NOT DETECTED (NOT DETECTED); GC (NEIS GONORRHOEAE)RNA** NOT DETECTED (NOT DETECTED)
== END | disposition home or self-care (01) ==
LOC: C.LABSPEC 15:54
PROVIDERS: ATTEND Physician Assistant
DX: Z11.3 Encounter for screening for infections with a predominantly sexual mode of transmission (principal)

== ENCOUNTER → 2017-05-20 | Outpatient (CLI) | payer OTHER | END | disposition home or self-care (01) | LOC: C.PAPS 09:17 | PROVIDERS: ATTEND Physician Assistant | DX: Z12.4 Encounter for screening for malignant neoplasm of cervix (principal) ==

== ENCOUNTER 2017-07-27 22:49 | Emergency (ER) | payer OTHER ==
[~2017-07-27] VITALS: Ht 160 cm; Wt 102.7 kg
[2017-07-27 22:56] VITALS: TEMP 36.3; Ht 160 cm; Wt 102.7 kg
[2017-07-27] MEDS ORDERED: IBUPROFEN 600 MG TAB PO STA (23:21)
[2017-07-27] MEDS ORDERED: DIAZEPAM 5MG TAB PO ONE (23:30)
[2017-07-27] MEDS ORDERED: DEXAMETHASONE **PF** INJ 10 MG/ML VIAL IM ONE (23:30)
[2017-07-27] MEDS ORDERED: IBUPROFEN 200 MG TAB ONE (23:32)
[2017-07-27] MEDS ORDERED: IBUP-1451 PO (23:35)
--- NOTE | 2017-07-27 23:35 | EMERGENCY ROOM VISIT NOTE ---
History Report prepared by Lebron: Michael Gandara Under the Supervision of: Dr. Alonso Springer M.D. First contact with patient: 22:59 Chief Complaint: BACK INJURY Stated Complaint: BACK PAIN AND LOWER PELVIC PAIN History of Present Illness The patient is a 37 year old female who presents to the Emergency Room with complaints of persistent low back pain beginning yesterday. The patient states that her pain worsened after lifting a couch yesterday. She states that she felt a "pop" at that time. She states that her pain has worsened today. The patient states that her pain radiates into her lower pelvic area. She denies numbness, weakness, or loss of bowel or bladder continence. She has a known disc problem in her back as well as spinal stenosis. The patient states that she has had back problems ever since her previous . Source of History: patient Onset: Today Position: back (low) Timing: other (persistent) Associated Symptoms: No weakness, No numbness Note: The patient denies loss of bowel or bladder continence. Additional symptoms: pain radiating into her pelvic area. Review of Systems See HPI for pertinent positives and negatives. A total of ten systems were reviewed and were otherwise negative. Past Medical & Surgical Medical Problems: (1) Anemia (2) ASTHMA, UNSPECIFIED (3) Back pain (4) Back strain (5) Chest pain (6) Constipation (7) Foreign body in foot, left (8) Headache (9) Knee pain (10) Left sided chest pain (11) Lower back pain (12) Mastalgia (13) Nausea (14) Neck pain (15) Neck pain (16) Neck pain (17) Right elbow pain (18) Shortness of breath (19) Spasm of back muscles (20) Spinal stenosis (21) URI (upper respiratory infection) Family History Cancer Kidney disease Kidney stones Social History Smoking Status: Never Smoker Alcohol Use: none Drug Use: none Marital Status: single Housing Status: lives with family Occupation Status: employed Current/Historical Medications Scheduled PRN Diazepam (Diazepam), 1 TAB PO QID PRN for Muscle Spasms Ibuprofen Tab (Motrin), 800 MG PO Q8H PRN for Pain Allergies Coded Allergies: Cyclobenzaprine (Verified Allergy, Unknown, trouble breathing, 07/27/17) Physical Exam Vital Signs Date Time Temp Pulse Resp B/P (MAP) Pulse Ox O2 Delivery O2 Flow Rate FiO2 07/28/17 00:21 84 18 123/67 98 07/27/17 22:56 36.3 83 18 121/70 99 Room Air Physical Exam GENERAL: Awake, alert, well-appearing, in no distress HENT: Normocephalic, atraumatic. Oropharynx unremarkable. EYES: Normal conjunctiva. Sclera non-icteric. NECK: Supple. No nuchal rigidity. FROM. No JVD. RESPIRATORY: Clear to auscultation. CARDIAC: Regular rate, normal rhythm. Extremities warm and well perfused. Pulses equal. ABDOMEN: Soft, non-distended. No tenderness to palpation. No rebound or guarding. No masses. RECTAL: Deferred. MUSCULOSKELETAL: Chest examination reveals no tenderness. The back is symmetrical on inspection without obvious abnormality. Mild midline and lateral lumbar tenderness. No step offs. Positive straight leg raise bilaterally. 5/5 strength and sensation bilaterally. L5 intact bilateral lower extremities. There is no CVA tenderness to palpation. No joint edema. LOWER EXTREMITIES: Calves are equal size bilaterally and non-tender. No edema. No discoloration. NEURO: Normal sensorium. No sensory or motor deficits noted. SKIN: No rash or jaundice noted. Medical Decision & Procedures Medications Administered Medications (Trade) Dose Ordered Sig/Simon Route Start Time Stop Time Status Last Admin Dose Admin Ibuprofen (Motrin Tab) 800 mg NOW STAT PO 07/27/17 23:21 07/27/17 23:22 DC 07/27/17 23:35 600 MG Dexamethasone Sodium Phosphate (Dexamethasone Inj Pf) 10 mg NOW ONCE IM 07/27/17 23:30 07/27/17 23:31 DC 07/27/17 23:35 10 MG Diazepam (Valium Tab) 5 mg NOW ONCE PO 07/27/17 23:30 07/27/17 23:31 DC 07/27/17 23:35 5 MG Ibuprofen (Advil Tab) 200 mg STK-MED ONCE .ROUTE 07/27/17 23:32 07/27/17 23:33 DC 07/27/17 23:36 200 MG ED Course 2307: The patient was evaluated in room A10. A complete history and physical exam was performed. 2310: I reevaluated the patient. Discussed results and discharge instructions: she verbalized understanding and agreement. The patient is ready for discharge. Medical Decision I reviewed the patient's past medical history, medications, and the nursing notes as described above. The patient's presentation and history were concerning for muscular strain, lumbosacral radiculopathy, herniated disc, and spinal stenosis. The patient is a 37 y/o woman with a pmhx of chronic back pain in the setting of lumbar spinal stenosis and disk herniation presents to the emergency department with lower back pain that became worse after attempting to lift a couch yesterday per HPI. On arrival the patient is well-appearing in NAD, AFVSS. On exam the patient has mild ttp in the midline and lateral lumbar regional. No stepooffs. 5/5 strength and SILT BLE. Denies urinary retention or bowel incontinence. Patient has not taken any medication for her pain. Given the patient sx in the setting of her chronic back pain and no sx concerning for cord compression at this time, no indication for emergent imaging. Rather plan for symptomatic tx and spine f/u. Patient agreeable with plan. Feeling improved after Ibuprofen, valium, and dexamethasone. Able to ambulate with mild discomfort. Findings and plan for follow-up reviewed with patient. Patient agreeable and d/c'd per discharge instructions. Medication Reconcilliation Current Medication List: was personally reviewed by me Blood Pressure Screening Patient's blood pressure: Normal blood pressure Blood pressure disposition: Did not require urgent referral Impression Primary Impression: Lumbosacral radiculopathy Scribe Attestation The scribe's documentation has been prepared under my direction and personally reviewed by me in its entirety. I confirm that the note above accurately reflects all work, treatment, procedures, and medical decision making performed by me. Departure Information Dispostion Home / Self-Care Prescriptions Diazepam (Diazepam) 2 Mg Tab 1 TAB PO QID Y for Muscle Spasms, #5 TABS Prov: Alonso Springer M.D. 07/28/17 Ibuprofen Tab (MOTRIN) 800 Mg Tab 800 MG PO Q8H Y for Pain for 10 Days, #30 TAB Prov: Alonso Springer M.D. 07/27/17 Referrals Vinh Orozco M.D.([facility]) (PCP) Rudy Montejo, DO Patient Instructions Lumbar Radiculopathy, My [facility] Additional Instructions Please follow up with spine surgery, Dr. Sefter, next week for re-evaluation and possible imaging. Otherwise, your exam did not show signs of an emergent condition at this time. Ibuprofen and Acetaminophen for pain as needed. Valium for muscle relaxation as needed. Heating pad for additional muscle relaxation. Avoid strenuous activity such as lifting heavy objects. Return to the emergency department for worsening symptoms as described in the accompanying instructions.
[2017-07-28] MEDS ORDERED: VLM2 PO (00:14)
[2017-07-28 00:21] VITALS: BP 123/67; PULSE 84; O2SAT 98
[2018-01-09] MEDS ORDERED: DICL75TA2 PO (19:09)
== END 2017-07-28 00:22 | disposition home or self-care (01) ==
LOC: C.EDB 22:51 → C.EDA 07-28 00:22
DX: M54.17 Radiculopathy, lumbosacral region (principal); J45.909 Unspecified asthma, uncomplicated; Z84.1 Family history of disorders of kidney and ureter

== ENCOUNTER 2017-10-20 18:02 | Emergency (ER) | payer OTHER ==
[~2017-10-20] VITALS: Ht 160 cm; Wt 114.0 kg
[~2017-10-20 18:02] MED LIST changes: -IBUP-1050 PO; -PSEU240T PO; +VLM2 PO
[2017-10-20 18:07] VITALS: TEMP 36.5; Ht 160 cm; Wt 114.0 kg
[2017-10-20] MEDS ORDERED: SODIUM CHLORIDE 0.9% 1000ML 1,000 ML IV STA (18:59)
[2017-10-20] MEDS ORDERED: ONDANSETRON INJ 2 MG/ML 2 ML VIAL IV STA (18:59)
[2017-10-20] MEDS ORDERED: KETOROLAC TROMETHAMINE 30 MG/ML VIAL IV STA (18:59)
[2017-10-20] MEDS ORDERED: MoRPHine SULFATE 4 MG/ML 1 ML CARP\\VIAL IV PRN (19:00)
[2017-10-20] MEDS ORDERED: DICL-201 PO (19:07)
--- NOTE | 2017-10-20 19:10 | EMERGENCY ROOM VISIT NOTE ---
History Report prepared by Lebron: Dejuan Hood Under the Supervision of: Dr. Miguelangel Pérez D.O. First contact with patient: 18:43 Chief Complaint: ILLNESS Stated Complaint: NECK PAIN LEFT SIDE,SORE THROAT,EAR PAIN, HEADACHE History of Present Illness The patient is a 37 year old female who presents to the Emergency Room with complaints of a worsening stiff neck beginning yesterday. The patient states she went to sleep last night after taking ibuprofen. She reports the ibuprofen helped, but it did not alleviate it. The patient notes she kept waking up in the middle of the night. She states she tried taking Ativan as a muscle relaxer because she is allergic to regular muscle relaxers. The patient reports the Ativan did not help, so she kept taking ibuprofen through the night and day. She notes her symptoms spread to her ears, neck, and throat. The patient states it is now hard to swallow and she has a headache. She reports she has a history of this before when she was , and she was not diagnosed with a source. The patient notes she was not evaluated by her PCP. She denies fevers, chills, nausea, vomiting, coughing, and a history of medical problems. She states her LNMP was two weeks, and she denies the chance of being . Source of History: patient Onset: yesterday Position: neck Quality: other (stiff) Timing: worsening Modifying Factors (Relieving): ibuprofen (mild but not completely alleviating) Associated Symptoms: + headache, No fevers, No chills, No cough, No nausea, No vomiting Note: Associated symptoms: hard to swallow, pain in her ears and throat Denies: chance of being Review of Systems See HPI for pertinent positives & negatives. A total of 10 systems reviewed and were otherwise negative. Past Medical & Surgical Medical Problems: (1) Anemia (2) ASTHMA, UNSPECIFIED (3) Back pain (4) Back strain (5) Chest pain (6) Constipation (7) Foreign body in foot, left (8) Headache (9) Knee pain (10) Left sided chest pain (11) Lower back pain (12) Mastalgia (13) Nausea (14) Neck pain (15) Neck pain (16) Neck pain (17) Right elbow pain (18) Shortness of breath (19) Spasm of back muscles (20) Spinal stenosis (21) URI (upper respiratory infection) Family History Cancer Kidney disease Kidney stones Social History Smoking Status: Never Smoker Alcohol Use: none Drug Use: none Marital Status: single Housing Status: lives with family Occupation Status: employed Current/Historical Medications Scheduled Diclofenac (Voltaren), 75 MG PO BID Allergies Coded Allergies: Cyclobenzaprine (Verified Allergy, Unknown, trouble breathing, 07/27/17) Physical Exam Vital Signs Date Time Temp Pulse Resp B/P (MAP) Pulse Ox O2 Delivery O2 Flow Rate FiO2 10/20/17 20:48 84 20 131/71 99 10/20/17 20:00 76 20 124/75 98 Room Air 10/20/17 18:07 36.5 80 16 139/79 100 Room Air Physical Exam GENERAL: Patient is awake, alert, and is somewhat anxious appearing and uncomfortable. Patient is resting comfortably. EYES: The conjunctivae are clear. The pupils are round and reactive. EARS, NOSE, MOUTH AND THROAT: The nose is without any evidence of any deformity. Mucous membranes are moist tongue is midline. TMs are clear bilaterally. Posterior oropharynx is clear with no erythema. NECK: The neck is nontender and supple. No posterior tenderness to palpation. There was significant tenderness over the left paravertebral area with no palpable masses noted. RESPIRATORY: Normal respiratory effort is noted there is no evidence of wheezing rhonchi or rales CARDIOVASCULAR: Regular rate and rhythm noted there no murmurs rubs or gallops normal S1 normal S2 GASTROINTESTINAL: The abdomen is soft. Bowel sounds are present in all quadrants. Abdomen is nontender BACK: No midline tenderness or or step-off noted range of motion in flexion extension as well as rotation no signs of muscle spasm noted MUSCULOSKELETAL/EXTREMITIES: There is no evidence of gross deformity full range of motion is noted in the hips and shoulders SKIN: There is no obvious evidence of any rash. There are no petechiae, pallor or cyanosis noted. NEUROLOGIC: Patient is awake alert and oriented x3 strength is symmetric patellar reflexes are 2+ bilaterally Medical Decision & Procedures ER Provider Diagnostic Interpretation: CT results as stated below per my review and radiologist interpretation. CT ANGIOGRAPHY HEAD COMBO CT DOSE: 1069.85 mGy.cm CLINICAL HISTORY: LEFT HEADACHE AND NECK PAIN TECHNIQUE: Unenhanced images were obtained the brain. Patient was then scanned in a dynamic helical fashion during intravenous administration of 117 cc Optiray 320. Angiographic images were acquired. MIP imaging was performed and reviewed on the 3-D workstation. A dose lowering technique was utilized adhering to the principles of ALARA. COMPARISON STUDY: Noncontrast head CT dated 11/07/2015 FINDINGS: Noncontrast images reveal no intra or extra-axial mass lesions. There is no CT evidence of acute cortical infarction. There is no evidence of midline shift. There is no evidence of acute hemorrhage. There is no evidence of hydrocephalus. There is no evidence of acute sinusitis. CT angiography the brain reveals no major intracranial branch occlusions. There are no lesion suspicious for aneurysm. There are no findings to indicate dural venous sinus thrombosis. The right transverse sinus appears somewhat hypoplastic. IMPRESSION: Unremarkable CT angiography the brain. Electronically signed by: Rickie Perkins M.D. 10/20/2017 8:03 PM Dictated Date/Time: 10/20/2017 8:[address] NECK ANGIO WITH CONTRAST CLINICAL HISTORY: Headache and left-sided neck pain. Possible carotid dissection. COMPARISON STUDY: CT scan the neck dated March 2014 TECHNIQUE: CT angiography was performed from the aortic arch to the skull base. MIP imaging was performed. The patient was scanned in a dynamic helical fashion during intravenous administration of 117 cc of Optiray 320. A dose lowering technique was utilized adhering to the principles of ALARA. CT DOSE: Technique: CT angiogram of the carotid and vertebral arteries was obtained using intravenous contrast and 3-D reconstruction. NASCET criteria was utilized. Findings: The right carotid revealed no evidence of aneurysm and no evidence of dissection. There is no evidence of hemodynamic significant stenosis. The right internal carotid is somewhat diminutive. The left carotid revealed no evidence of hemodynamic significant stenosis. There is no evidence of aneurysm. There is no evidence of dissection. The left internal carotid artery is somewhat diminutive. There is no evidence of hemodynamically significant vertebral stenosis. There is no evidence of vertebral dissection. The left vertebral artery is dominant. IMPRESSION: No evidence of hemodynamically significant carotid or vertebral artery stenosis. No evidence of dissection. Electronically signed by: Rickie Perkins M.D. 10/20/2017 7:58 PM Dictated Date/Time: 10/20/2017 7:53 PM Laboratory Results 10/20/17 19:14 Red Blood Count 4.45, Mean Corpuscular Volume 88.1, Mean Corpuscular Hemoglobin 28.8, Mean Corpuscular Hemoglobin Concent 32.7, Mean Platelet Volume 9.5, Neutrophils (%) (Auto) 58.9, Lymphocytes (%) (Auto) 33.3, Monocytes (%) (Auto) 5.8, Eosinophils (%) (Auto) 1.6, Basophils (%) (Auto) 0.2, Neutrophils # (Auto) 3.24, Lymphocytes # (Auto) 1.83, Monocytes # (Auto) 0.32, Eosinophils # (Auto) 0.09, Basophils # (Auto) 0.01 10/20/17 19:14 Test 10/20/17 19:14 10/20/17 19:17 White Blood Count 5.50 K/uL (4.8-10.8) Red Blood Count 4.45 M/uL (4.2-5.4) Hemoglobin 12.8 g/dL (12.0-16.0) Hematocrit 39.2 % (37-47) Mean Corpuscular Volume 88.1 fL (80-100) Mean Corpuscular Hemoglobin 28.8 pg (25-34) Mean Corpuscular Hemoglobin Concent 32.7 g/dl (32-36) Platelet Count 354 K/uL (130-400) Mean Platelet Volume 9.5 fL (7.4-10.4) Neutrophils (%) (Auto) 58.9 % Lymphocytes (%) (Auto) 33.3 % Monocytes (%) (Auto) 5.8 % Eosinophils (%) (Auto) 1.6 % Basophils (%) (Auto) 0.2 % Neutrophils # (Auto) 3.24 K/uL (1.4-6.5) Lymphocytes # (Auto) 1.83 K/uL (1.2-3.4) Monocytes # (Auto) 0.32 K/uL (0.11-0.59) Eosinophils # (Auto) 0.09 K/uL (0-0.5) Basophils # (Auto) 0.01 K/uL (0-0.2) RDW Standard Deviation 43.2 fL (36.4-46.3) RDW Coefficient of Variation 13.4 % (11.5-14.5) Immature Granulocyte % (Auto) 0.2 % Immature Granulocyte # (Auto) 0.01 K/uL (0.00-0.02) Est Creatinine Clear Calc Drug Dose 121.2 ml/min Estimated GFR () 113.4 Estimated GFR (Non- 97.8 BUN/Creatinine Ratio 9.7 (10-20) Calcium Level 9.1 mg/dl (8.5-10.1) Total Bilirubin 0.3 mg/dl (0.2-1) Direct Bilirubin < 0.1 mg/dl (0-0.2) Aspartate Amino Transf (AST/SGOT) 12 U/L (15-37) Alanine Aminotransferase (ALT/SGPT) 17 U/L (12-78) Alkaline Phosphatase 71 U/L (45-117) Total Protein 7.8 gm/dl (6.4-8.2) Albumin 3.4 gm/dl (3.4-5.0) Lipase 111 U/L (73-393) Human Chorionic Gonadotropin, Qual NEG (NEG) Bedside Hemoglobin 13.6 g/dl (12.0-16.0) Bedside Hematocrit 40 % (37-47) Bedside Sodium 138 mEq/L (135-144) Bedside Potassium 4.2 mEq/L (3.3-5.0) Bedside Chloride 101 mEq/L (101-112) Bedside Total CO2 28 mEq/l (24-31) Anion Gap 14.0 mmol/L (16-25) Bedside Blood Urea Nitrogen 7 mg/dl (7-18) Bedside Creatinine 0.8 mg/dl (0.6-1.3) Bedside Glucose (other) 92 mg/dl (70-99) Bedside Ionized Calcium (Julius) 1.19 mmol/l (1.12-1.32) Laboratory results per my review. Medications Administered Medications (Trade) Dose Ordered Sig/Simon Route Start Time Stop Time Status Last Admin Dose Admin Ketorolac Tromethamine (Toradol Inj) 30 mg NOW STAT IV 10/20/17 18:59 10/20/17 19:03 DC 10/20/17 18:59 30 MG Ondansetron HCl (Zofran Inj) 4 mg NOW STAT IV 10/20/17 18:59 10/20/17 19:03 DC 10/20/17 18:59 4 MG Sodium Chloride 1,000 ml @ 999 mls/hr Q1H1M STAT IV 10/20/17 18:59 10/20/17 19:59 DC 10/20/17 18:59 999 MLS/HR Morphine Sulfate (MoRPHine SULFATE INJ) 4 mg Q15M PRN IV 10/20/17 19:00 10/20/17 21:13 DC 10/20/17 19:52 4 MG Oxycodone HCl (Roxicodone Immediate Rel 5MG Home Pack) 1 homepack UD ONCE PO 10/20/17 20:45 10/20/17 20:46 DC 10/20/17 20:45 1 HOMEPACK ED Course 1851: The patient was evaluated in room A09B. A complete history and physical examination were performed. 1858: Ordered NSS 1,000 ml @ 999 mls/hr IV, Ondansetron HCl 4mg IV, Toradol Inj 30 mg IV 1899: Ordered Morphine Sulfate 4mg IV 2039: Upon reevaluation, the patient is feeling better but still has mild discomfort. I discussed the results and treatment plan with the patient. She verbalized agreement of the treatment plan. The patient will be discharged home after she receives her medication. 2044: Ordered Oxycodone HCl 1 homepack PO Medical Decision Differential Diagnoses: Intracranial hemorrhage, intracranial mass, migraine headache, tension headache , sinusitis, meningitis Nursing notes reviewed. The patient is a 37-year-old female who presented to the emergency department for left-sided neck pain and left ear pain. The patient does not have any specific swelling. There was no definite cause for the patient's pain noted on physical exam. For this reason radiographic studies were obtained to rule out a soft tissue abnormality as well as a vascular abnormality. The patient's pain was not traumatic. I discussed patient's laboratory and radiographic studies with her. She was treated with IV pain medication. On subsequent reevaluation she was somewhat improved. She was encouraged to rest and avoid any strenuous activity. I also encouraged her to continue all medications as prescribed and follow-up with her family doctor soon as possible. Otherwise she was encouraged to return to the emergency department immediately if symptoms change worsen or the need arises. Medication Reconcilliation Current Medication List: was personally reviewed by me Blood Pressure Screening Patient's blood pressure: Normal blood pressure Blood pressure disposition: Did not require urgent referral Impression Primary Impression: Headache Additional Impression: Neck pain on left side Scribe Attestation The scribe's documentation has been prepared under my direction and personally reviewed by me in its entirety. I confirm that the note above accurately reflects all work, treatment, procedures, and medical decision making performed by me. Departure Information Dispostion Home / Self-Care Referrals Vinh Orozco M.D.([facility]) (PCP) Forms HOME CARE DOCUMENTATION FORM, IMPORTANT VISIT INFORMATION, WORK / SCHOOL INSTRUCTIONS Patient Instructions ED Neck Pain No Trauma, Headache Pain, My [facility] Additional Instructions Continue using Motrin and Tylenol as directed for pain. Rest and avoid any strenuous activity. Call your family doctor to schedule a follow-up appointment. Problem Qualifiers Primary Impression: Headache Headache type: unspecified Headache chronicity pattern: acute headache Intractability: not intractable Qualified Codes: R51 - Headache
[2017-10-20] MEDS ORDERED: OPTIRAY 300 IV PRN (19:15)
[2017-10-20 19:32] LABS: ISTAT CREATININE 0.8 mg/dl (0.6-1.3); ISTAT IONIZED CALCIUM 1.19 mmol/l (1.12-1.32); ISTAT POTASSIUM 4.2 mEq/L (3.3-5.0)
[2017-10-20 19:33] LABS: BASO % 0.2 %; BASO ABS # 0.01 K/uL (0-0.2); EOS % 1.6 %; EOS ABS # 0.09 K/uL (0-0.5); HEMATOCRIT 39.2 % (37-47); HEMOGLOBIN 12.8 g/dL (12.0-16.0); IG# 0.01 K/uL (0.00-0.02); LYMPH % 33.3 %; LYMPH ABS # 1.83 K/uL (1.2-3.4); MEAN CELL VOLUME 88.1 fL (80-100); MEAN CORPUSCULAR HEMOGLOBIN 28.8 pg (25-34); MEAN CORPUSCULAR HGB CONC 32.7 g/dl (32-36); MEAN PLATELET VOLUME 9.5 fL (7.4-10.4); MONO % 5.8 %; MONO ABS # 0.32 K/uL (0.11-0.59); NEUT % 58.9 %; NEUT ABS # 3.24 K/uL (1.4-6.5); PLATELET COUNT 354 K/uL (130-400); RED CELL DISTRIBUTION WIDTH CV 13.4 % (11.5-14.5); RED CELL DISTRIBUTION WIDTH SD 43.2 fL (36.4-46.3)
[2017-10-20 19:44] LABS: ALBUMIN 3.4 gm/dl (3.4-5.0); ALT/SGPT 17 U/L (12-78); AST/SGOT 12 U/L (15-37); BLOOD UREA NITROGEN 8 mg/dl (7-18); CALCIUM 9.1 mg/dl (8.5-10.1); CARBON DIOXIDE 27 mmol/L (21-32); CREATININE 0.78 mg/dl (0.60-1.20); GLUCOSE 89 mg/dl (70-99); LIPASE 111 U/L (73-393); POTASSIUM 4.1 mmol/L (3.5-5.1); SODIUM 135 mmol/L (136-145)
[2017-10-20 19:47] LABS: ALKALINE PHOSPHATASE 71 U/L (45-117); TOTAL PROTEIN 7.8 gm/dl (6.4-8.2)
--- NOTE | 2017-10-20 19:59 | DIAGNOSTIC IMAGING REPORT ---
CT NECK ANGIO WITH CONTRAST CLINICAL HISTORY: Headache and left-sided neck pain. Possible carotid dissection. COMPARISON STUDY: CT scan the neck dated March 2014 TECHNIQUE: CT angiography was performed from the aortic arch to the skull base. MIP imaging was performed. The patient was scanned in a dynamic helical fashion during intravenous administration of 117 cc of Optiray 320. A dose lowering technique was utilized adhering to the principles of ALARA. CT DOSE: Technique: CT angiogram of the carotid and vertebral arteries was obtained using intravenous contrast and 3-D reconstruction. NASCET criteria was utilized. Findings: The right carotid revealed no evidence of aneurysm and no evidence of dissection. There is no evidence of hemodynamic significant stenosis. The right internal carotid is somewhat diminutive. The left carotid revealed no evidence of hemodynamic significant stenosis. There is no evidence of aneurysm. There is no evidence of dissection. The left internal carotid artery is somewhat diminutive. There is no evidence of hemodynamically significant vertebral stenosis. There is no evidence of vertebral dissection. The left vertebral artery is dominant. IMPRESSION: No evidence of hemodynamically significant carotid or vertebral artery stenosis. No evidence of dissection. Electronically signed by: Rickie Perkins M.D. 10/20/2017 7:58 PM Dictated Date/Time: 10/20/2017 7:53 PM
--- NOTE | 2017-10-20 20:05 | DIAGNOSTIC IMAGING REPORT ---
CT ANGIOGRAPHY HEAD COMBO CT DOSE: 1069.85 mGy.cm CLINICAL HISTORY: LEFT HEADACHE AND NECK PAIN TECHNIQUE: Unenhanced images were obtained the brain. Patient was then scanned in a dynamic helical fashion during intravenous administration of 117 cc Optiray 320. Angiographic images were acquired. MIP imaging was performed and reviewed on the 3-D workstation. A dose lowering technique was utilized adhering to the principles of ALARA. COMPARISON STUDY: Noncontrast head CT dated 11/07/2015 FINDINGS: Noncontrast images reveal no intra or extra-axial mass lesions. There is no CT evidence of acute cortical infarction. There is no evidence of midline shift. There is no evidence of acute hemorrhage. There is no evidence of hydrocephalus. There is no evidence of acute sinusitis. CT angiography the brain reveals no major intracranial branch occlusions. There are no lesion suspicious for aneurysm. There are no findings to indicate dural venous sinus thrombosis. The right transverse sinus appears somewhat hypoplastic. IMPRESSION: Unremarkable CT angiography the brain. Electronically signed by: Rickie Perkins M.D. 10/20/2017 8:03 PM Dictated Date/Time: 10/20/2017 8:00 PM
[2017-10-20] MEDS ORDERED: OXYCODONE IR HOME PACK PO ONE (20:45)
[2017-10-20 20:48] VITALS: BP 131/71; PULSE 84; O2SAT 99
== END 2017-10-20 20:49 | disposition home or self-care (01) ==
LOC: C.EDB 18:04 → C.EDA 20:49
DX: M54.2 Cervicalgia (principal); R51 Headache; J45.909 Unspecified asthma, uncomplicated; Z88.8 Allergy status to other drugs, medicaments and biological substances; Z84.1 Family history of disorders of kidney and ureter